=== PATIENT | female | born 1995 | race African-American/Black ===

== ENCOUNTER 2018-04-02 07:05 | Day surgery (SDC) | payer BC ==
[~2018-04-02] VITALS: Ht 157.5 cm; Wt 49.9 kg
[2018-04-02] MEDS ORDERED: fentaNYL CITRATE/PF 100 MCG/2 ML AMP IVP PRN ×2 (09:30)
[2018-04-02] MEDS ORDERED: ONDANSETRON HCL 4 MG/2 ML VIAL IVP PRN ×2 (09:30→10:00)
[2018-04-02] MEDS ORDERED: BUPIVACAINE /EPINEPHRINE/PF 0.25% 30 ML VIAL INJ ONE (10:00)
[2018-04-02] MEDS ORDERED: ONDANSETRON HCL 4 MG/2 ML VIAL ONE (10:00)
[2018-04-02] MEDS ORDERED: NS IRRIG SOLN 1000 ML IR ONE (10:00)
[2018-04-02] MEDS ORDERED: MIDAZOLAM HCL 5 MG/ML VIAL (VERSED) IV ONE (10:00)
[2018-04-02] MEDS ORDERED: CEFAZOLIN 1 GM IVPB PREMIX 50 ML IV ONE (10:00)
[2018-04-02] MEDS ORDERED: LR 1,000 ML IV.SOLN IV ONE (10:00)
[2018-04-02] MEDS ORDERED: KETOROLAC TROMETHAMINE 30 MG VIAL ONE (10:00)
[2018-04-02] MEDS ORDERED: PROPOFOL 200MG/ 20ML VIAL (DIPRIVAN) IV ONE (10:00)
[2018-04-02] MEDS ORDERED: fentaNYL CITRATE/PF 100 MCG/2 ML AMP ONE (10:00)
[2018-04-02] MEDS ORDERED: PROMETHAZINE HCL 25 MG/ML AMP IM PRN ×2 (10:00→12:30)
[2018-04-02] MEDS ORDERED: SEVOFLURANE 15 MIN GAS INH ONE (10:00)
[2018-04-02] MEDS ORDERED: HYDROmorphone 2 MG TAB PO PRN (10:00)
[2018-04-02] MEDS ORDERED: OXYCODONE/ACETAMINOPHEN 5-325 TABLET ONE (11:18)
[2018-04-02 11:26] VITALS: BP_SYST 117
[2018-04-02] MEDS ORDERED: KETOROLAC TROMETHAMINE 30 MG VIAL IVP SCH (12:00)
[2018-04-02] MEDS ORDERED: OXYCODONE/ACETAMINOPHEN 5-325 TABLET PO PRN (12:30)
== END 2018-04-02 12:45 | disposition home or self-care (01) ==
LOC: SDS 07:05 → SMU 07:07 → SDS 12:45
PROVIDERS: ATTEND Obstetrics & Gynecology
DX: N75.0 Cyst of Bartholin's gland (principal); Z98.890 Other specified postprocedural states; G43.109 Migraine with aura, not intractable, without status migrainosus; E61.1 Iron deficiency; M41.9 Scoliosis, unspecified; Z88.8 Allergy status to other drugs, medicaments and biological substances; L65.9 Nonscarring hair loss, unspecified; R63.4 Abnormal weight loss
CPT/HCPCS: 36415; 56440; 86886; 86900; 86901; 87070 ×2; 87075; 88304; J0690; J1885; J2250; J2405; J2704; J3010; J3490; J7120

== ENCOUNTER 2018-11-16 12:37 | Inpatient (IN) | payer BC ==
[~2018-11-16] VITALS: Ht 157.5 cm; Wt 54.4 kg
[2018-11-16 13:00] VITALS: BP_SYST 115
[2018-11-16] MEDS ORDERED: CLIN300C11 PO (13:18)
[2018-11-16] MEDS ORDERED: DOXYCYCLINE HYCLATE 100 MG in D5W 100 ML IV ONE (13:30)
[2018-11-16] MEDS ORDERED: ONDANSETRON HCL 4 MG/2 ML VIAL IVP ONE (13:30)
[2018-11-16] MEDS ORDERED: DOXYCYCLINE HYCLATE 100 MG VIAL IV ONE (13:49)
[2018-11-16 13:54] LABS: EOSINOPHILS # (AUTO) 0.2 K/uL (0.0-0.4); EOSINOPHILS % (AUTO) 3.6 % (0.0-4.0); HEMATOCRIT 30.3 % (36-48); HEMOGLOBIN 9.7 g/dL (12.0-16.0); LYMPHOCYTES # (AUTO) 1.9 K/uL (1.0-5.5); LYMPHOCYTES % (AUTO) 37.8 % (20.5-51.5); MEAN CORPUSCULAR HEMOGLOBIN 24 pg (27-31); MEAN CORPUSCULAR HGB CONC 32 % (32-36); MEAN CORPUSCULAR VOLUME 73 fL (79.0-98.0); MONOCYTES # (AUTO) 0.3 K/uL (0.0-1.0); MONOCYTES % (AUTO) 7.1 % (1.7-9.3); NEUTROPHILS # (AUTO) 2.5 K/uL (1.8-7.7); NEUTROPHILS % (AUTO) 50.5 % (40.0-70.0); PLATELET COUNT (AUTO) 365 K/uL (130-430); RED BLOOD CELL COUNT(AUTO) 4.15 MIL/uL (4.2-6.2); RED CELL DISTRIBUTION WIDTH 18.6 % (9.0-15.0); WHITE BLOOD COUNT (AUTO) 4.9 K/uL (4.8-10.8)
[2018-11-16 13:56] LABS: CALCIUM 8.5 mg/dL (8.4-11.0); CREATININE 0.63 mg/dL (0.55-1.30); POTASSIUM 4.3 mmol/L (3.5-5.1)
[2018-11-16 14:00] LABS: ALBUMIN 3.5 g/dL (3.4-4.8); TOTAL BILIRUBIN 0.7 mg/dL (0.0-1.0)
[2018-11-16 14:10] LABS: BILIRUBIN,URINE NEGATIVE (NEGATIVE); BLOOD, URINE NEGATIVE (NEGATIVE); CLARITY/URINE CLEAR (CLEAR); COLOR,URINE YELLOW (YELLOW); GLUCOSE,URINE NEGATIVE (NEGATIVE); KETONES,URINE NEGATIVE (NEGATIVE); LEUKOCYTE ESTERASE ,URINE NEGATIVE (NEGATIVE); NITRITE, URINE NEGATIVE (NEGATIVE); PROTEIN URINE NEGATIVE (NEGATIVE); UROBILINOGEN,URINE 0.2 (0.2-1.0)
[2018-11-16] MEDS ORDERED: KETOROLAC TROMETHAMINE 30 MG VIAL IVP ONE (14:30)
[2018-11-16] MEDS ORDERED: NACL 0.9% 1,000 ML IV ONE (14:30)
[2018-11-16 15:17] VITALS: BP_SYST 119
[2018-11-16 15:29] VITALS: BP_SYST 119
[2018-11-16] MEDS: HYDROcodone/ACETAMIN 5-325 MG TAB (NORCO/ VICODIN) PO PRN ×2 (16:20→22:10)
[2018-11-16] MEDS ORDERED: COMMUNICATION ORDER XX ONE (16:30)
[2018-11-16] MEDS ORDERED: VANCOMYCIN HCL 1 GM/NS PREMIX 250 ML IV ONE (17:30)
[2018-11-16 19:00] VITALS: BP_SYST 113
[2018-11-16] MEDS: MORPHINE 4 MG/ML INJ. SYRINGE IVP PRN ×2 (20:05→23:55)
[2018-11-16] MEDS ORDERED: D5W IV SCH (21:00)
[2018-11-16] MEDS ORDERED: DOXYCYCLINE HYCLATE IV SCH (21:00)
[2018-11-16 23:21] VITALS: BP_SYST 110
[2018-11-17] MEDS: VANCOMYCIN HCL 1,000 MG in NS 250 ML IV SCH ×2 (05:53→18:56)
[2018-11-17] MEDS: MORPHINE 4 MG/ML INJ. SYRINGE IVP PRN ×3 (06:53→19:01)
[2018-11-17 08:20] VITALS: BP_SYST 113
[2018-11-17] MEDS: HYDROcodone/ACETAMIN 5-325 MG TAB (NORCO/ VICODIN) PO PRN ×2 (08:51→21:52)
[2018-11-17 12:15] VITALS: BP_SYST 106
[2018-11-17] MEDS ORDERED: DOXY100T2 PO (15:53)
[2018-11-17 16:03] VITALS: BP_SYST 114; BP_SYST 116
[2018-11-17 16:14] VITALS: BP_SYST 116
[2018-11-17 20:00] VITALS: BP_SYST 113
[2018-11-17] MEDS ORDERED: FLUCONAZOLE 200 mg/ NS 100 ML IV SCH (21:00)
[2018-11-18 06:58] LABS: CREATININE 0.63 mg/dL (0.55-1.30); POTASSIUM 3.5 mmol/L (3.5-5.1)
[2018-11-18 07:44] LABS: CALCIUM 8.9 mg/dL (8.4-10.2)
[2018-11-18 08:07] VITALS: BP_SYST 111
[2018-11-18] MEDS: MORPHINE 4 MG/ML INJ. SYRINGE IVP PRN (08:47)
[2018-11-18] MEDS ORDERED: LINE600T PO (10:34)
[2018-11-18] MEDS ORDERED: FLUC200T PO (10:34)
[2018-11-18] MEDS ORDERED: VANCOMYCIN HCL 1,000 MG in NS 250 ML IV SCH (12:00)
[2018-11-18 12:35] VITALS: BP_SYST 114
[2018-11-18 17:03] VITALS: BP_SYST 113
== END 2018-11-18 16:50 | disposition home or self-care (01) | DRG 603 ==
LOC: SED 12:37 → SMU 14:35
PROVIDERS: ADMIT Internal Medicine Hospice and Palliative Medicine; ATTEND Internal Medicine Hospice and Palliative Medicine
DX: L03.011 Cellulitis of right finger (principal); K21.9 Gastro-esophageal reflux disease without esophagitis; Z90.49 Acquired absence of other specified parts of digestive tract; Z88.1 Allergy status to other antibiotic agents; Z88.2 Allergy status to sulfonamides; Z88.8 Allergy status to other drugs, medicaments and biological substances; Z79.2 Long term (current) use of antibiotics; Z79.899 Other long term (current) drug therapy
CPT/HCPCS: 36415; 71045; 80053; 80069; 81003; 83605; 85025; 87040-TC; 87086; 93971; 96361; 96374; 96375; 99285; J1450; J1885; J2270; J2405; J3370; J3490; J7050

== ENCOUNTER 2019-03-30 11:11 | Emergency (ER) | payer BC ==
[~2019-03-30] VITALS: Ht 157.5 cm; Wt 51.7 kg
[~2019-03-30 11:11] MED LIST: FLUC200T PO; LINE600T PO
[2019-03-30 11:18] VITALS: BP_SYST 116
[2019-03-30] MEDS ORDERED: IBUPROFEN 600 MG TABLET PO ONE (13:00)
[2019-03-30 14:13] VITALS: BP_SYST 116
== END 2019-03-30 14:13 | disposition home or self-care (01) ==
LOC: SED 11:11
DX: S20.211A Contusion of right front wall of thorax, initial encounter (principal); S70.01XA Contusion of right hip, initial encounter; K21.9 Gastro-esophageal reflux disease without esophagitis; Z88.1 Allergy status to other antibiotic agents; Z88.6 Allergy status to analgesic agent; V89.2XXA Person injured in unspecified motor-vehicle accident, traffic, initial encounter; Y93.89 Activity, other specified; Y99.8 Other external cause status; Y92.89 Other specified places as the place of occurrence of the external cause
CPT/HCPCS: 71100; 73552; 81002; 81025; 99283

== ENCOUNTER 2020-08-09 18:42 | Emergency (ER) | payer BC, MEDICAID ==
[~2020-08-09] VITALS: Ht 157.5 cm; Wt 54.4 kg
[~2020-08-09 18:42] MED LIST changes: -LINE600T PO; +LINE600T12 PO
[2020-08-09 19:05] VITALS: BP_SYST 140
[2020-08-09 19:55] VITALS: BP_SYST 136
== END 2020-08-09 19:55 | disposition home or self-care (01) ==
LOC: SED 18:42
DX: K64.4 Residual hemorrhoidal skin tags (principal); K21.9 Gastro-esophageal reflux disease without esophagitis; Z88.1 Allergy status to other antibiotic agents
CPT/HCPCS: 99283

== ENCOUNTER 2020-12-14 20:45 | Emergency (ER) | payer MEDICAID ==
[~2020-12-14] VITALS: Ht 157.5 cm; Wt 56.2 kg
[2020-12-14 20:50] VITALS: BP_SYST 122
[2020-12-14 22:03] VITALS: BP_SYST 122
[2020-12-15] MEDS ORDERED: HYDR-3917 PO (10:09)
[2020-12-15] MEDS ORDERED: IBUP-1969 PO (10:47)
[2020-12-15] MEDS ORDERED: ACET325T53 PO (10:47)
== END 2020-12-14 22:03 | disposition left against medical advice (07) ==
LOC: SED 20:45
DX: J02.9 Acute pharyngitis, unspecified (principal); Z53.21 Procedure and treatment not carried out due to patient leaving prior to being seen by health care provider

== ENCOUNTER 2020-12-15 09:48 | Emergency (ER) | payer MEDICAID ==
[~2020-12-15] VITALS: Ht 157.5 cm; Wt 56.2 kg
[2020-12-15 09:48] VITALS: BP_SYST 109
[2020-12-15] MEDS ORDERED: HYDR-3917 PO (10:09)
[2020-12-15] MEDS ORDERED: IBUPROFEN 600 MG TABLET PO ONE (10:15)
[2020-12-15] MEDS ORDERED: IBUP-1969 PO (10:47)
[2020-12-15] MEDS ORDERED: ACET325T53 PO (10:47)
[2020-12-15 10:58] VITALS: BP_SYST 109
== END 2020-12-15 10:58 | disposition home or self-care (01) ==
LOC: SED 09:48
DX: J02.9 Acute pharyngitis, unspecified (principal); K21.9 Gastro-esophageal reflux disease without esophagitis; Z88.0 Allergy status to penicillin; Z88.1 Allergy status to other antibiotic agents; Z88.8 Allergy status to other drugs, medicaments and biological substances; Z79.899 Other long term (current) drug therapy
CPT/HCPCS: 36415; 86403; 87081; 99283

== ENCOUNTER 2021-07-28 12:39 | Emergency (ER) | payer OTHER, MEDICAID ==
[~2021-07-28] VITALS: Ht 157.5 cm; Wt 57.6 kg
[~2021-07-28 12:39] MED LIST changes: +ACET325T53 PO; +IBUP-1969 PO
[2021-07-28 13:05] VITALS: BP_SYST 142
--- NOTE | 2021-07-28 13:05 | NUR ---
Pt to remain in the ER lobby untuil ER bed becomes available.
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
--- NOTE | 2021-07-28 14:15 | NUR ---
DR. MAYNARD TO TRIAGE TO ASSESS.
--- NOTE | 2021-07-28 14:52 | NUR ---
CT SCAN COMPLETED.
[2021-07-28] MEDS ORDERED: CYCL10TA24 PO (16:58)
[2021-07-28] MEDS ORDERED: LIDO1ADH22 TP (16:58)
[2021-07-28] MEDS ORDERED: NAPR-688 PO (16:58)
--- NOTE | 2021-07-28 17:00 | NUR ---
PT RESTING IN LOBBY WAITING FOR DISPO
[2021-07-28 18:50] VITALS: BP_SYST 142
--- NOTE | 2021-07-28 18:50 | NUR ---
Patient given written and verbal discharge instructions and verbalizes understanding. DR. CAESAR MUÑOZ MD discussed with patient the results and treatment provided. Patient in stable condition. ID arm band removed. Rx of given. Patient educated on pain management and to follow up with PMD. Pain Scale 0/10. Opportunity for questions provided and answered.
== END 2021-07-28 18:56 | disposition home or self-care (01) ==
LOC: SED 12:39
DX: S29.011A Strain of muscle and tendon of front wall of thorax, initial encounter (principal); S16.1XXA Strain of muscle, fascia and tendon at neck level, initial encounter; K21.9 Gastro-esophageal reflux disease without esophagitis; Z88.0 Allergy status to penicillin; Z88.1 Allergy status to other antibiotic agents; Z88.8 Allergy status to other drugs, medicaments and biological substances; Z79.899 Other long term (current) drug therapy; V49.49XA Driver injured in collision with other motor vehicles in traffic accident, initial encounter; Y93.89 Activity, other specified; Y92.89 Other specified places as the place of occurrence of the external cause; Y99.8 Other external cause status
CPT/HCPCS: 71250-TC; 76376; 99284

== ENCOUNTER 2021-09-11 08:24 | Emergency (ER) | payer MEDICAID, OTHER ==
[~2021-09-11] VITALS: Ht 157.5 cm; Wt 56.7 kg
[~2021-09-11 08:24] MED LIST changes: +CYCL10TA24 PO; +LIDO1ADH22 TP; +NAPR-688 PO
[2021-09-11 08:28] VITALS: BP_SYST 120
[2021-09-11] MEDS ORDERED: ONDANSETRON HCL 4 MG/2 ML VIAL IVP ONE (09:15)
[2021-09-11] MEDS ORDERED: KETOROLAC TROMETHAMINE 30 MG VIAL IVP ONE (09:15)
[2021-09-11 09:27] LABS: EOSINOPHILS # (AUTO) 0.2 K/uL (0.0-0.4); EOSINOPHILS % (AUTO) 4.3 % (0.0-4.0); HEMATOCRIT 34.7 % (36-48); HEMOGLOBIN 11.6 g/dL (12.0-16.0); LYMPHOCYTES # (AUTO) 1.7 K/uL (1.0-5.5); LYMPHOCYTES % (AUTO) 36.7 % (20.5-51.5); MEAN CORPUSCULAR HEMOGLOBIN 27 pg (27-31); MEAN CORPUSCULAR HGB CONC 34 % (32-36); MEAN CORPUSCULAR VOLUME 82 fL (79.0-98.0); MONOCYTES # (AUTO) 0.2 K/uL (0.0-1.0); NEUTROPHILS # (AUTO) 2.6 K/uL (1.8-7.7); PLATELET COUNT (AUTO) 381 K/uL (130-430); RED BLOOD CELL COUNT(AUTO) 4.23 MIL/uL (4.2-6.2); RED CELL DISTRIBUTION WIDTH 15.1 % (9.0-15.0); WHITE BLOOD COUNT (AUTO) 4.7 K/uL (4.8-10.8)
[2021-09-11 09:35] LABS: BILIRUBIN,URINE NEGATIVE (NEGATIVE); CLARITY/URINE CLEAR (CLEAR); COLOR,URINE YELLOW (YELLOW); GLUCOSE,URINE NEGATIVE (NEGATIVE); KETONES,URINE NEGATIVE (NEGATIVE); LEUKOCYTE ESTERASE ,URINE NEGATIVE (NEGATIVE); NITRITE, URINE NEGATIVE (NEGATIVE); PROTEIN URINE NEGATIVE (NEGATIVE); UROBILINOGEN,URINE 0.2 (0.2-1.0)
[2021-09-11 09:37] LABS: CALCIUM 7.9 mg/dL (8.4-11.0); CREATININE 0.58 mg/dL (0.55-1.30); POTASSIUM 3.8 mmol/L (3.5-5.1)
[2021-09-11 09:43] LABS: ALBUMIN 3.6 g/dL (3.4-4.8); TOTAL BILIRUBIN 0.5 mg/dL (0.0-1.0)
[2021-09-11 09:45] LABS: BLOOD, URINE TRACE (NEGATIVE)
[2021-09-11 09:50] LABS: BACTERIA,URINE RARE /HPF (None Seen); RBC,URINE 0-3 /HPF (0-3); WBC,URINE NONE SEEN /HPF (0-3)
[2021-09-11] MEDS ORDERED: DICY10CA13 PO (10:58)
[2021-09-11 11:04] VITALS: BP_SYST 120
== END 2021-09-11 11:04 | disposition home or self-care (01) ==
LOC: SED 08:24
DX: R10.84 Generalized abdominal pain (principal); K21.9 Gastro-esophageal reflux disease without esophagitis; Z88.0 Allergy status to penicillin; Z88.1 Allergy status to other antibiotic agents
CPT/HCPCS: 36415; 74177; 76376; 80053; 81000; 81025; 83690; 85025; 96374; 96375; 99285; J1885; J2405; Q9967

== ENCOUNTER 2022-06-01 19:58 | Emergency (ER) | payer MEDICAID ==
[~2022-06-01] VITALS: Ht 157.5 cm; Wt 54.4 kg
[~2022-06-01 19:58] MED LIST changes: +DICY10CA13 PO
[2022-06-01 20:02] VITALS: BP_SYST 121
[2022-06-01] MEDS ORDERED: DICYCLOMINE HCL 10 MG/5 ML SOLUTION PO ONE (20:30)
[2022-06-01] MEDS ORDERED: FAMOTIDINE 20 MG TABLET PO ONE (20:30)
[2022-06-01] MEDS ORDERED: KETOROLAC TROMETHAMINE 15 MG VIAL IM ONE (20:30)
[2022-06-01] MEDS ORDERED: ACETAMINOPHEN 500 MG TABLET PO ONE (20:30)
[2022-06-01 21:12] LABS: ANION GAP 4 (5-15); CALCIUM 8.9 mg/dL (8.4-11.0); CHLORIDE 104 mmol/L (98-107); GLUCOSE 81 mg/dL (70-99); UREA NITROGEN, BLOOD 11 mg/dL (8-21)
[2022-06-01 21:16] LABS: GFR AFRICAN AMERICAN 110 mL/min (>90)
[2022-06-01 21:20] LABS: ALANINE AMINOTRANSFERASE 10 U/L (12-78); ALBUMIN 3.7 g/dL (3.4-4.8); ASPARTATE AMINOTRANSFERASE 10 U/L (10-37); TOTAL BILIRUBIN 0.3 mg/dL (0.0-1.0)
[2022-06-01 21:24] LABS: BASOPHILS # (AUTO) 0.1 K/uL (0.0-0.2); BASOPHILS % (AUTO) 1.1 % (0.0-2.0); EOSINOPHILS # (AUTO) 0.2 K/uL (0.0-0.4); EOSINOPHILS % (AUTO) 4.9 % (0.0-4.0); HEMATOCRIT 34.9 % (36-48); HEMOGLOBIN 11.9 g/dL (12.0-16.0); LYMPHOCYTES # (AUTO) 2.3 K/uL (1.0-5.5); MEAN CORPUSCULAR HEMOGLOBIN 29 pg (27-31); MEAN CORPUSCULAR HGB CONC 34 % (32-36); MEAN CORPUSCULAR VOLUME 84 fL (79.0-98.0); MONOCYTES # (AUTO) 0.3 K/uL (0.0-1.0); MONOCYTES % (AUTO) 6.8 % (1.7-9.3); NEUTROPHILS # (AUTO) 1.8 K/uL (1.8-7.7); NEUTROPHILS % (AUTO) 38.2 % (40.0-70.0); PLATELET COUNT (AUTO) 349 K/uL (130-430); RED BLOOD CELL COUNT(AUTO) 4.17 MIL/uL (4.2-6.2); RED CELL DISTRIBUTION WIDTH 13.6 % (9.0-15.0); WHITE BLOOD COUNT (AUTO) 4.7 K/uL (4.8-10.8)
[2022-06-01 22:17] LABS: BARBITURATE, URINE NEGATIVE (NEG <=200); BENZODIAZEPINE, URINE NEGATIVE (NEG <=150); CANNABINOID, URINE POSITIVE (NEG <=50); COCAINE, URINE NEGATIVE (NEG <=150); METHAMPHETAMINES SCREEN,URINE NEGATIVE (NEG <=500); OPIATE, URINE NEGATIVE (NEG <=100); PHENCYCLIDINE SCREEN,URINE NEGATIVE (NEG <=25); UR TRICYCLIC ANTIDEPRESSANTS NEGATIVE (NEG <=300); URINE AMPHETAMINE NEGATIVE (NEG <=500); URINE METHADONE NEGATIVE (NEG <=200); URINE OXYCODONE SCREEN NEGATIVE (NEG <=100); URINE PROPOXYPHENE SCREEN NEGATIVE (NEG <=300)
[2022-06-01] MEDS ORDERED: PEPTAB PO (22:54)
[2022-06-01] MEDS ORDERED: FAMO40TA7 PO (22:54)
[2022-06-01 23:08] VITALS: BP_SYST 96
== END 2022-06-01 23:08 | disposition home or self-care (01) ==
LOC: SED 19:58
DX: K29.70 Gastritis, unspecified, without bleeding (principal); D64.9 Anemia, unspecified; D72.819 Decreased white blood cell count, unspecified; K21.9 Gastro-esophageal reflux disease without esophagitis; R07.9 Chest pain, unspecified; R06.02 Shortness of breath; F17.200 Nicotine dependence, unspecified, uncomplicated; F12.90 Cannabis use, unspecified, uncomplicated; Z88.0 Allergy status to penicillin; Z88.1 Allergy status to other antibiotic agents; Z88.8 Allergy status to other drugs, medicaments and biological substances; Z79.899 Other long term (current) drug therapy
CPT/HCPCS: 99285; 71045; 80307; 80053; 85025; 85379; 84484; 36415; 93005; 81025; J1885

== ENCOUNTER 2022-08-11 12:28 | Emergency (ER) | payer MEDICAID ==
[~2022-08-11] VITALS: Ht 157.5 cm; Wt 55.8 kg
[~2022-08-11 12:28] MED LIST changes: +FAMO40TA7 PO; +PEPTAB PO
[2022-08-11 13:29] VITALS: BP_SYST 136
[2022-08-11 14:43] LABS: BILIRUBIN,URINE NEGATIVE (NEGATIVE); BLOOD, URINE NEGATIVE (NEGATIVE); CLARITY/URINE CLEAR (CLEAR); COLOR,URINE YELLOW (YELLOW); GLUCOSE,URINE NEGATIVE (NEGATIVE); KETONES,URINE TRACE (NEGATIVE); LEUKOCYTE ESTERASE ,URINE NEGATIVE (NEGATIVE); NITRITE, URINE NEGATIVE (NEGATIVE); PROTEIN URINE NEGATIVE (NEGATIVE); UROBILINOGEN,URINE 0.2 (0.2-1.0)
[2022-08-11 16:07] LABS: BASOPHILS % (AUTO) 0.7 % (0.0-2.0); EOSINOPHILS # (AUTO) 0.2 K/uL (0.0-0.4); EOSINOPHILS % (AUTO) 2.7 % (0.0-4.0); HEMATOCRIT 36.7 % (36-48); HEMOGLOBIN 12.4 g/dL (12.0-16.0); LYMPHOCYTES # (AUTO) 2.2 K/uL (1.0-5.5); LYMPHOCYTES % (AUTO) 37.5 % (20.5-51.5); MEAN CORPUSCULAR HEMOGLOBIN 28 pg (27-31); MEAN CORPUSCULAR HGB CONC 34 % (32-36); MEAN CORPUSCULAR VOLUME 84 fL (79.0-98.0); MONOCYTES # (AUTO) 0.3 K/uL (0.0-1.0); MONOCYTES % (AUTO) 5.8 % (1.7-9.3); NEUTROPHILS # (AUTO) 3.2 K/uL (1.8-7.7); NEUTROPHILS % (AUTO) 53.3 % (40.0-70.0); PLATELET COUNT (AUTO) 368 K/uL (130-430); RED BLOOD CELL COUNT(AUTO) 4.37 MIL/uL (4.2-6.2); WHITE BLOOD COUNT (AUTO) 5.9 K/uL (4.8-10.8)
[2022-08-11 16:18] LABS: PROTHROMBIN TIME 10.4 SECS (9.5-12.5)
[2022-08-11 18:12] VITALS: BP_SYST 132
== END 2022-08-11 17:47 | disposition home or self-care (01) ==
LOC: SED 12:28
DX: O26.891 Other specified pregnancy related conditions, first trimester (principal); Z3A.01 Less than 8 weeks gestation of pregnancy; Z88.0 Allergy status to penicillin; Z88.1 Allergy status to other antibiotic agents; Z88.8 Allergy status to other drugs, medicaments and biological substances; Z79.899 Other long term (current) drug therapy
CPT/HCPCS: 36415; 76801; 76817; 81003; 81025; 84702; 85025; 85610-TC; 85730-TC; 86900; 86901; 99284

== ENCOUNTER 2023-09-24 15:55 | Emergency (ER) | payer OTHER, MEDICAID ==
[~2023-09-24] VITALS: Ht 157.5 cm; Wt 62.6 kg
[~2023-09-24 15:55] MED LIST changes: +DICY-14 PO; -DICY10CA13 PO
[2023-09-24 16:02] VITALS: BP_SYST 124; PULSE 72; RESP 16; TEMP 98.1; O2SAT 98
[2023-09-24] MEDS ORDERED: DIAZEPAM 10 MG/2 ML DISP.SYRIN IM ONE (18:30)
[2023-09-24] MEDS: KETOROLAC TROMETHAMINE 30 MG VIAL IM ONE (18:52)
[2023-09-24] MEDS: LIDOCAINE PATCH 5% 1 EA TP ONE (18:53)
[2023-09-24] MEDS: DIAZEPAM 5 MG TABLET (VALIUM) PO ONE (19:01)
[2023-09-24] MEDS ORDERED: NAPR-1172 PO (19:43)
[2023-09-24] MEDS ORDERED: ACET-2634 PO (19:43)
[2023-09-24] MEDS ORDERED: LORA-258 PO (19:43)
[2023-09-24 19:58] VITALS: BP_SYST 131; PULSE 94; RESP 20; TEMP 98; O2SAT 98
== END 2023-09-24 19:58 | disposition home or self-care (01) ==
LOC: SED 15:55
DX: M43.6 Torticollis (principal); M54.2 Cervicalgia; Z79.899 Other long term (current) drug therapy; Z88.0 Allergy status to penicillin; Z88.1 Allergy status to other antibiotic agents; Z88.8 Allergy status to other drugs, medicaments and biological substances; K21.9 Gastro-esophageal reflux disease without esophagitis
CPT/HCPCS: 99285; 72125; 81025; 96372; J1885